=== PATIENT | female | born 1935 | race Caucasian/White ===

== ENCOUNTER 2017-01-06 21:46 | Emergency (ER) | payer MEDICARE, OTHER ==
[~2017-01-06] VITALS: Ht 152.4 cm; Wt 59.1 kg
[2017-01-06 21:51] VITALS: Ht 152.4 cm; Wt 59.1 kg
== END 2017-01-07 00:52 | disposition left against medical advice (07) ==
LOC: FTE 21:46
DX: Z53.21 Procedure and treatment not carried out due to patient leaving prior to being seen by health care provider (principal)